=== PATIENT | female | born 2000 | race African-American/Black ===

== ENCOUNTER 2020-04-10 00:15 | Inpatient (IN) ==
[2020-04-10] MEDS ORDERED: MEPERIDINE 50 MG/1 ML VIAL IV PRN (00:38)
[2020-04-10] MEDS ORDERED: ONDANSETRON 4 MG/2 ML VIAL IV PRN (00:38)
[2020-04-10] MEDS ORDERED: DINOPROSTONE 10 MG VAG.INSERT VAG ONE (00:38)
[2020-04-10] MEDS ORDERED: BUTORPHANOL 2 MG/ML VIAL IV PRN (00:38)
[2020-04-10] MEDS ORDERED: ACETAMINOPHEN 325 MG TABLET PO PRN (00:38)
[2020-04-10 00:59] LABS: Basophils % 0.1 % (0.0-0.8); Eosinophils % 0.4 % (0.00-10.9); Hematocrit 32.2 VOL% (35.7-47.0); Hemoglobin 10.3 GM/DL (12.0-16.0); Immature Granulocytes % 0.4 %; Immature Granulocytes Absolute 0.03 #; Lymphocytes # 2.9 10*3/uL (1.4-4.0); Lymphocytes % 39.7 % (21.3-54.2); Mean Corpuscular Volume 79.7 FL (87-102); Mean Platelet Volume 9.7 FL (9.6-12.0); Monocytes % 5.8 % (1.7-12.7); Neutrophils % 53.6 % (38.7-73.9); Platelet Count 265 T/CUMM (130-400); Red Blood Count 4.04 MC/CUMM (3.8-5.5); Red Cell Distribution Width 13.9 % (9.3-17.3); White Blood Count 7.4 T/CUMM (4-12)
[2020-04-10 02:09] LABS: Alanine Aminotransferase 15 U/L (13-56); Albumin 2.9 G/DL (3.4-5.0); Alkaline Phosphatase 203 U/L (45-117); Aspartate Amino Transferase 15 U/L (0-37); Bilirubin,Total < 0.39 MG/DL (0.2-1.0); Blood Urea Nitrogen 3 MG/DL (7-18); Calcium 8.7 MG/DL (8.5-10.1); Carbon Dioxide 19 MMOL/L (21-32); Estimated Glom Filtration Rate 207 ML/MIN; Glucose 105 MG/DL (74-106); Osmolality,Calculated 264.2 MOS/KG (273-304); Potassium 3.4 MMOL/L (3.5-5.1); Sodium 134 MMOL/L (136-145); Total Protein 7.6 G/DL (6.4-8.3)
[2020-04-10] MEDS ORDERED: AMPICILLIN INJ 2,000 MG in SODIUM CHLORIDE 0.9% 100 ML IV ONE (07:03)
[2020-04-10] MEDS: LACTATED RINGERS 1,000 ML IV SCH ×2 (07:31→10:45)
[2020-04-10] MEDS ORDERED: OXYTOCIN/LR 20 UNIT/1,000 ML BAG IV SCH (09:00)
[2020-04-10] MEDS ORDERED: hydrOXYzine HCL 25 MG/1 ML VIAL IM PRN (09:07)
[2020-04-10] MEDS ORDERED: CITRIC ACID/SODIUM CITRATE 30 ML UDCUP PO ONE (09:07)
[2020-04-10] MEDS ORDERED: PROMETHAZINE 25 MG/1 ML VIAL IM ONE (09:07)
[2020-04-10] MEDS ORDERED: NALOXONE 0.4 MG/ML VIAL IV PRN (09:07)
[2020-04-10] MEDS ORDERED: diphenhydrAMINE 50 MG/1 ML VIAL IV PRN ×2 (09:07)
[2020-04-10] MEDS ORDERED: FAMOTIDINE 20 MG/2 ML VIAL IV ONE (09:07)
[2020-04-10] MEDS ORDERED: LACTATED RINGERS 1,000 ML IV ONE (09:07)
[2020-04-10] MEDS ORDERED: ONDANSETRON 4 MG/2 ML VIAL IV ONE (09:07)
[2020-04-10] MEDS ORDERED: fentaNYL 2 MCG/ROPIV 0.2% EPID 100 ML EPIDURAL SCH (09:30)
[2020-04-10] MEDS: ePHEDrine 50 MG/ML VIAL IV PRN ×2 (10:14→10:35)
[2020-04-10] MEDS: AMPICILLIN INJ 1,000 MG in SODIUM CHLORIDE 0.9% 100 ML IV SCH ×2 (11:02→15:09)
[2020-04-10 13:53] LABS: Bilirubin,Urine Negative (Negative); Blood, Urine Negative (Negative); Glucose,Urine (UA) Negative (Negative); Ketones,Urine 5 mg/dL (Negative); Mucus,Urine Occasional /LPF (Occasional); Nitrite,Urine Negative (Negative); Protein,Urine Negative; RBC,Urine 1 /HPF (0-4); Squamous Epithelial Cell,Urine Occasional /HPF (0-10); Urine Appearance CLEAR (Clear); Urine Color Yellow (Yellow); Urine Specific Gravity 1.024 (1.001-1.035); Urine Urobilinogen < 2.0 EU/DL (0.2-1.0); WBC,Urine 2 /HPF (0-6)
[2020-04-10] MEDS ORDERED: TRANEXAMIC ACID 1,000 MG/10 ML VIAL ONE (14:48)
[2020-04-10] MEDS ORDERED: miSOPROStoL 200 MCG TABLET ONE (14:48)
[2020-04-10] MEDS ORDERED: OXYTOCIN/LR 0 UNIT/0 ML BAG IV ONE (14:48)
[2020-04-10] MEDS ORDERED: CARBOPROST TROMETHAMINE 250 MCG/ML AMP IM ONE (14:49)
[2020-04-10] MEDS ORDERED: METHYLERGONOVINE 0.2 MG/1 ML AMP ONE (14:49)
[2020-04-10 15:51] LABS: Cord Arterial Blood HCO3 20.7 MMOL/L
[2020-04-10 15:54] LABS: Cord Venous Blood HCO3 21.3 MMOL/L; Cord Venous Blood PCO2 45.7 MMHG; Cord Venous Blood PO2 43.5
[2020-04-10] MEDS ORDERED: miSOPROStoL 200 MCG TABLET RECTAL ONE (17:00)
[2020-04-10 17:07] LABS: Hematocrit 35.3 VOL% (35.7-47.0); Hemoglobin 10.7 GM/DL (12.0-16.0)
[2020-04-10] MEDS ORDERED: BISACODYL 10 MG SUPP RECTAL PRN (18:35)
[2020-04-10] MEDS ORDERED: MAGNESIUM HYDROXIDE SUSP 30 ML UDCUP PO PRN (18:35)
[2020-04-10] MEDS ORDERED: IBUPROFEN 800 MG TABLET PO PRN (18:35)
[2020-04-10] MEDS ORDERED: LACTATED RINGERS 1,000 ML IV SCH (19:00)
[2020-04-10] MEDS: DOCUSATE SODIUM 100 MG CAPSULE PO SCH (20:57)
[2020-04-10] MEDS ORDERED: BENZOCAINE 20%/MENTHOL 0.5% SPRAY 56 GM CAN TOP PRN (20:58)
[2020-04-10] MEDS ORDERED: OXYTOCIN/LR 20 UNIT/1,000 ML BAG IV ONE (21:46)
[2020-04-11 05:16] LABS: Basophils % 0.2 % (0.0-0.8); Eosinophils % 0.3 % (0.00-10.9); Hematocrit 26.6 VOL% (35.7-47.0); Hemoglobin 8.8 GM/DL (12.0-16.0); Immature Granulocytes % 0.6 %; Immature Granulocytes Absolute 0.05 #; Lymphocytes # 3.3 10*3/uL (1.4-4.0); Lymphocytes % 37.4 % (21.3-54.2); Mean Corpuscular HGB Conc 33.1 GM/DL (32-36); Mean Corpuscular Volume 81.1 FL (87-102); Mean Platelet Volume 9.6 FL (9.6-12.0); Monocytes % 6.7 % (1.7-12.7); Neutrophils % 54.8 % (38.7-73.9); Platelet Count 228 T/CUMM (130-400); Red Blood Count 3.28 MC/CUMM (3.8-5.5); Red Cell Distribution Width 14.1 % (9.3-17.3); White Blood Count 8.8 T/CUMM (4-12)
[2020-04-11] MEDS: IBUPROFEN 800 MG TABLET PO PRN ×3 (06:12→21:18)
[2020-04-11] MEDS: DOCUSATE SODIUM 100 MG CAPSULE PO SCH ×2 (08:52→20:50)
[2020-04-11] MEDS: FERROUS SULFATE 325 MG TABLET PO SCH (08:52)
[2020-04-11] MEDS: MULTIVITAMIN (PRENATAL) TABLET PO SCH (08:52)
[2020-04-11] MEDS: POTASSIUM CHLORIDE 20 MEQ TABLET PO PRN ×3 (08:52→12:56)
[2020-04-12 08:10] VITALS: BP 106/67
[2020-04-12] MEDS: DOCUSATE SODIUM 100 MG CAPSULE PO SCH (08:24)
[2020-04-12] MEDS: MULTIVITAMIN (PRENATAL) TABLET PO SCH (08:24)
[2020-04-12] MEDS: FERROUS SULFATE 325 MG TABLET PO SCH (08:24)
== END 2020-04-12 12:50 | disposition home or self-care (01) | DRG 560 ==
LOC: N.LD 00:15 → N.OB 18:25
PROVIDERS: ADMIT Obstetrics & Gynecology; ATTEND Obstetrics & Gynecology